=== PATIENT | female | born 1990 | race African-American/Black ===

== ENCOUNTER 2021-06-07 19:12 | Emergency (ER) | payer SELFPAY ==
--- NOTE | 2021-06-07 20:38 | RAD REPORT ---
EXAM DESCRIPTION: RAD - Ankle Right 3 View - 06/07/2021 7:55 pm CLINICAL HISTORY: PAIN COMPARISON: No comparisons FINDINGS: No acute fracture or dislocation seen. Evidence of prior trauma involving the inferior syn desmosis.
--- NOTE | 2021-06-07 20:44 | ER ---
Nurse's Notes [facility] Name: Nicole Torres Age: 31 yrs Sex: Female : 1990 Arrival Date: 06/07/2021 Time: 19:18 Bed DX3 Private MD: Diagnosis: Sprain of deltoid ligament of right ankle Presentation: 06/07 19:33 Chief complaint: Patient states: twisted RT ankle at work, pt is walking in lobby. bs2 Coronavirus screen: At this time, the client does not indicate any symptoms associated with coronavirus-19. Ebola Screen: No symptoms or risks identified at this time. Initial Sepsis Screen: Does the patient meet any 2 criteria? No. Patient's initial sepsis screen is negative. Does the patient have a suspected source of infection? No. Patient's initial sepsis screen is negative. Risk Assessment: Do you want to hurt yourself or someone else? Patient reports no desire to harm self or others. Onset of symptoms was June 07, 2021. 19:33 Method Of Arrival: Ambulatory bs2 19:33 Acuity: BEATRIZ 4 bs2 Triage Assessment: 19:36 General: Appears in no apparent distress. obese, Behavior is calm, cooperative, bs2 appropriate for age. Pain: Complains of pain in right ankle and dorsum of right foot Pain does not radiate. Pain currently is 10 out of 10 on a pain scale. Musculoskeletal: No deficits noted. Reports pain in right ankle, anterior aspect of right ankle and dorsum of right foot. Historical: - Allergies: 19:36 Hydrocodone-Acetaminophen; bs2 - Home Meds: 19:36 None [Active]; bs2 - PMHx: 19:36 Myocardial infarction; bs2 - PSHx: 19:36 None; bs2 - Immunization history:: Adult Immunizations not up to date, Client reports having NOT received the Covid vaccine. - Social history:: Smoking status: Patient reports the use of cigarette tobacco products, denies chronic smoking, but will smoke occasionally, Patient uses alcohol, occasionally. - Family history:: not pertinent. Screenin:42 Abuse screen: Denies threats or abuse. Denies injuries from another. Nutritional ld1 screening: No deficits noted. Tuberculosis screening: No symptoms or risk factors identified. Fall Risk None identified. Assessment: 19:42 General: Appears in no apparent distress. uncomfortable, Behavior is calm, cooperative, ld1 appropriate for age. Pain: Complains of pain in right ankle Pain does not radiate. Pain currently is 10 out of 10 on a pain scale. Quality of pain is described as sharp, throbbing, Pain began 3 hours ago. Is continuous. Neuro: Level of Consciousness is awake, alert, obeys commands, Oriented to person, place, time, situation. Cardiovascular: Capillary refill < 3 seconds Patient's skin is warm and dry. Respiratory: Airway is patent Respiratory effort is even, unlabored, Respiratory pattern is regular, symmetrical. GI: Abdomen is flat, non-distended. : No signs and/or symptoms were reported regarding the genitourinary system. EENT: No signs and/or symptoms were reported regarding the EENT system. Derm: No signs and/or symptoms reported regarding the dermatologic system. Musculoskeletal: Range of motion: limited in right ankle Reports pain in right ankle. Vital Signs: 19:33 BP 117 / 80; Pulse 71; Resp 16; Temp 98.1(O); Pulse Ox 100% ; Weight 104.33 kg; Height bs2 5 ft. 9 in. (175.26 cm); Pain 10/10; 19:42 BP 125 / 82; Pulse 75; Resp 18; Pulse Ox 100% on R/A; Pain 10/10; ld1 19:33 Body Mass Index 33.96 (104.33 kg, 175.26 cm) bs2 ED Course: 19:18 Patient arrived in ED. bp1 19:36 Triage completed. bs2 19:36 Arm band placed on right wrist. bs2 19:42 Patient has correct armband on for positive identification. Call light in reach. Pulse ld1 ox on. NIBP on. Warm blanket given. 19:42 No provider procedures requiring assistance completed. ld1 19:52 Jayshree Schneider MD is Attending Physician. ma2 19:55 XRAY Ankle RIGHT 3 view In Process Unspecified. EDMS 20:55 Patient did not have IV access during this emergency room visit. ld1 Administered Medications: No medications were administered Outcome: 20:43 Discharge ordered by . ma2 20:54 Discharged to home ambulatory. ld1 20:54 Condition: stable 20:54 Discharge instructions given to patient, Instructed on discharge instructions, follow up and referral plans. medication usage, Demonstrated understanding of instructions, follow-up care, medications, Prescriptions given X 1. 20:55 Patient left the ED. ld1 Signatures: Dispatcher [employer] EDMS Jayshree Schneider MD MD ma2 Nupur Wheat Lauren RN RN ld1 Izzy Aragon RN RN bs2
--- NOTE | 2021-06-07 20:44 | EDPHYS ---
Physician Documentation [facility] Name: Nicole Torres Age: 31 yrs Sex: Female : 1990 Arrival Date: 06/07/2021 Time: 19:18 Bed DX3 Private MD: ED Physician Jayshree Schneider HPI: 06/07 20:26 This 31 yrs old Black Female presents to ER via Ambulatory with complaints of Ankle ma2 Injury. 20:26 The patient presents with a contusion. The complaints affect the right ankle. ma2 Associated signs and symptoms: Pertinent positives: Pertinent negatives: numbness, vomiting, warmth, weakness. Severity of symptoms: At their worst the symptoms were mild, in the emergency department the symptoms are unchanged. The patient has experienced similar episodes in the past. Historical: - Allergies: 19:36 Hydrocodone-Acetaminophen; bs2 - Home Meds: 19:36 None [Active]; bs2 - PMHx: 19:36 Myocardial infarction; bs2 - PSHx: 19:36 None; bs2 - Immunization history:: Adult Immunizations not up to date, Client reports having NOT received the Covid vaccine. - Social history:: Smoking status: Patient reports the use of cigarette tobacco products, denies chronic smoking, but will smoke occasionally, Patient uses alcohol, occasionally. - Family history:: not pertinent. ROS: 20:26 Constitutional: Negative for fever, chills, and weight loss. ma2 20:26 All other systems are negative. Exam: 20:26 Constitutional: This is a well developed, well nourished patient who is awake, alert, ma2 and in no acute distress. Chest/axilla: Normal chest wall appearance and motion. Nontender with no deformity. No lesions are appreciated. Cardiovascular: Regular rate and rhythm with a normal S1 and S2. No gallops, murmurs, or rubs. Normal PMI, no JVD. No pulse deficits. Respiratory: Lungs have equal breath sounds bilaterally, clear to auscultation and percussion. No rales, rhonchi or wheezes noted. No increased work of breathing, no retractions or nasal flaring. Abdomen/GI: Soft, non-tender, with normal bowel sounds. No distension or tympany. No guarding or rebound. No evidence of tenderness throughout. Skin: Warm, dry with normal turgor. Normal color with no rashes, no lesions, and no evidence of cellulitis. MS/ Extremity: Pulses equal, no cyanosis. Neurovascular intact. Full, normal range of motion. Neuro: Awake and alert, GCS 15, oriented to person, place, time, and situation. Cranial nerves II-XII grossly intact. Motor strength 5/5 in all extremities. Sensory grossly intact. Cerebellar exam normal. Normal gait. Vital Signs: 19:33 BP 117 / 80; Pulse 71; Resp 16; Temp 98.1(O); Pulse Ox 100% ; Weight 104.33 kg; Height bs2 5 ft. 9 in. (175.26 cm); Pain 10/10; 19:42 BP 125 / 82; Pulse 75; Resp 18; Pulse Ox 100% on R/A; Pain 10/10; ld1 19:33 Body Mass Index 33.96 (104.33 kg, 175.26 cm) bs2 MDM: 19:52 Patient medically screened. ma2 20:26 Differential diagnosis: fracture, sprain, Ankle sprain. Data reviewed: vital signs, ma2 nurses notes. Counseling: I had a detailed discussion with the patient and/or guardian regarding: the historical points, exam findings, and any diagnostic results supporting the discharge/admit diagnosis, the presence of at least one elevated blood pressure reading (>120/80) during this emergency department visit, the need for outpatient follow up. Response to treatment: the patient's symptoms have markedly improved after treatment. 06/07 19:40 Order name: XRAY Ankle RIGHT 3 view; Complete Time: 20:42 bb 06/07 20:43 Order name: Tanner wrap-joint: or soft brace to right ankle; Complete Time: 20:45 ma2 Administered Medications: No medications were administered Disposition Summary: 06/07/21 20:43 Discharge Ordered Location: Home ma2 Condition: Stable ma2 Diagnosis - Sprain of deltoid ligament of right ankle ma2 Followup: ma2 - With: Private Physician - When: Tomorrow - Reason: Continuance of care Discharge Instructions: - Discharge Summary Sheet ma2 - Ankle Sprain, [id number] ma2 Forms: - Medication Reconciliation Form ma2 - Thank You Letter ma2 - Antibiotic Education ma2 - Prescription Opioid Use ma2 - Work release form ld1 Prescriptions: - Diclofenac Sodium 75 mg Oral Tablet Sustained Release - take 1 tablet by ORAL route 2 times per day; 30 tablet; Refills: 0, Product ma2 Selection Permitted Signatures: Dispatcher [employer] Jayshree Soto MD MD ma2 Izzy Aragon, RN RN bs2
[2021-06-07 21:00] VITALS: TEMP 98.1; O2SAT 100
[2021-06-07 21:02] VITALS: BP 125/82
== END 2021-06-07 20:55 | disposition home or self-care (01) ==
LOC: ER 19:12
DX: S93.421A Sprain of deltoid ligament of right ankle, initial encounter (principal); F17.210 Nicotine dependence, cigarettes, uncomplicated; Z88.5 Allergy status to narcotic agent
CPT/HCPCS: 99283